=== PATIENT | male | born 1955 | race Caucasian/White ===

== ENCOUNTER → 2019-03-11 14:13 | Outpatient (CLI) | payer MEDICARE, SELFPAY ==
--- NOTE | 2019-03-11 14:20 | XR_ITS ---
PROCEDURE: XR FOOT RT MIN 3V CLINICAL INDICATION: RT ANKLE AND FOOT PAIN WITH SWELLING Right foot and ankle pain COMPARISON: XR ANKLE RT MIN 3V from 03/11/2019 FINDINGS: No fracture or dislocation. No lytic or blastic change. There is normal mineralization. There are mild degenerative changes at the ankle with mild bony hypertrophy along the anterior aspect of the distal tibia. There is some cortical regularity of the calcaneal spur which is nonspecific. Other findings:There is some and ostosis involving the distal tibia laterally and there are mild degenerative changes at the navicular cuneiform joint. IMPRESSION: No acute finding. Mild degenerative changes Dictated by: Marcio Vegas MD 03/11/2019 14:49 Electronically signed by Marcio Vegas MD in [place] 03/11/2019 14:49
== END ==
PROVIDERS: PCP Internal Medicine; Visit Provider Internal Medicine
DX: M25.571 Pain in right ankle and joints of right foot (principal)
CPT/HCPCS: 73610; 73630

== ENCOUNTER → 2020-07-20 09:40 | Outpatient (CLI) | payer MEDICARE, SELFPAY ==
[2020-07-20 10:20] LABS: Hemoglobin A1C 7.4 % (4.0-6.0)
[2020-07-20 10:48] LABS: Chloride 98 mmol/L (98-107); Sodium 134 mmol/L (136-145)
[2020-07-20 10:49] LABS: Potassium 5.5 mmoL/L (3.5-5.1)
[2020-07-20 10:51] LABS: Alanine Aminotransferase 24 U/L (12-78); Albumin Level 4.6 g/dl (3.5-5.0); Alkaline Phosphatase 120 U/L (38-126); Aspartate Amino Transferase 28 U/L (17-59); Bilirubin,Total 0.6 mg/dl (0.2-1.3); Blood Urea Nitrogen 13 mg/dl (9-20); Carbon Dioxide 30 mmol/L (22.0-30.0); Cholesterol 191 mg/dl (140-200); Estimated Glomerular Filt Rate 67 ml/min (>60); GFR (African American) 81 ML/MIN (>60); Total Protein,Serum 7.7 g/dl (6.3-8.2)
[2020-07-20 10:52] LABS: Calcium 9.9 mg/dl (8.4-10.2); Chol/HDL Ratio 4.2 (1-3.5); Glucose 199 mg/dl (74-100); HDL Cholesterol 46 mg/dl (40-60); Triglycerides 466 mg/dl (30-150)
[2020-07-20 11:03] LABS: Direct LDL Cholesterol 89.73 mg/dL (100-129)
== END ==
PROVIDERS: Visit Provider Internal Medicine
DX: E11.59 Type 2 diabetes mellitus with other circulatory complications (principal); E11.42 Type 2 diabetes mellitus with diabetic polyneuropathy; I10 Essential (primary) hypertension; E78.5 Hyperlipidemia, unspecified; Z79.84 Long term (current) use of oral hypoglycemic drugs
CPT/HCPCS: 36415; 80053; 80061; 83036

== ENCOUNTER → 2021-07-23 14:11 | Outpatient (CLI) | payer MEDICARE, SELFPAY ==
[2021-07-23 16:06] LABS: Hemoglobin A1C 6.9 % (4.0-6.0)
[2021-07-23 16:34] LABS: Alanine Aminotransferase 18 U/L (12-78); Albumin Level 4.3 g/dl (3.5-5.0); Albumin/Globulin Ratio 1.7 (1.1-1.8); Alkaline Phosphatase 97 U/L (38-126); Anion Gap 11.7 mEq/L (5-15); Aspartate Amino Transferase 28 U/L (17-59); Bilirubin,Total 0.8 mg/dl (0.2-1.3); Blood Urea Nitrogen 15 mg/dl (9-20); Calcium 8.9 mg/dl (8.4-10.2); Carbon Dioxide 28 mmol/L (22.0-30.0); Chloride 100 mmol/L (98-107); Chol/HDL Ratio 4.3 (1-3.5); Cholesterol 163 mg/dl (140-200); Estimated Glomerular Filt Rate 74 ml/min (>60); GFR (African American) 90 ML/MIN (>60); Globulin 2.5 g/dL (1.3-3.2); Glucose 114 mg/dl (74-100); HDL Cholesterol 38 mg/dl (40-60); Potassium 4.7 mmoL/L (3.5-5.1); Sodium 135 mmol/L (136-145); Total Protein,Serum 6.8 g/dl (6.3-8.2); Triglycerides 289 mg/dl (30-150); VLDL Cholesterol 58 mg/dL (0-40)
[2021-07-23 16:45] LABS: Direct LDL Cholesterol 88.02 mg/dL (100-129)
[2021-07-23 17:23] LABS: Vitamin B12 250 pg/mL (239-931)
== END ==
PROVIDERS: Visit Provider Internal Medicine
DX: E11.59 Type 2 diabetes mellitus with other circulatory complications (principal); E11.42 Type 2 diabetes mellitus with diabetic polyneuropathy; I73.9 Peripheral vascular disease, unspecified; I25.10 Atherosclerotic heart disease of native coronary artery without angina pectoris; I10 Essential (primary) hypertension; Z79.84 Long term (current) use of oral hypoglycemic drugs
CPT/HCPCS: 80053; 80061; 82607; 83036

== ENCOUNTER → 2021-07-29 07:43 | Outpatient (CLI) | payer MEDICARE, SELFPAY ==
--- NOTE | 2021-07-29 07:48 | CT_ITS ---
FINAL REPORT TECHNIQUE: Axial CT images were performed through the head. Coronal reformatted images were submitted. This study was performed with techniques to keep radiation doses as low as reasonably achievable (ALARA). Individualized dose reduction techniques using automated exposure control or adjustment of mA and/or kV according to the patient's size were employed. CLINICAL HISTORY: [place] FINDINGS: There is moderate atrophy. There is proportional ventriculomegaly. There is no evidence of hemorrhage. There is no mass or edema identified. There is no abnormal extra-axial fluid seen. There is complete opacification of the right mastoid air cells. There is complete opacification of the right middle ear cavity. There is partial opacification of the left mastoid air cells. IMPRESSION: Moderate atrophy and proportional ventriculomegaly. Chronic right mastoiditis and otitis media. Mild left mastoiditis. Reviewed, Interpreted and Dictated by Moustapha Treadwell MD Transcribed by Kaley Ruby Authenticated by Moustapha Treadwell MD on 07/29/2021 12:52:01 PM [facility]
== END ==
PROVIDERS: PCP Internal Medicine; Visit Provider Internal Medicine
DX: R27.0 Ataxia, unspecified (principal)
CPT/HCPCS: 70450

== ENCOUNTER → 2022-01-26 12:19 | Outpatient (CLI) | payer MEDICARE, SELFPAY ==
[2022-01-26 13:38] LABS: Basophils # 0.1 K/mm3 (0-0.2); Basophils % 0.6 % (0.1-2.0); Eosinophils # 0.1 K/mm3 (0.0-0.4); Eosinophils % 0.6 % (0.1-12.0); Hematocrit 50.8 % (42.0-52.0); Hemoglobin 16.3 g/dL (14.1-18.0); Lymphocytes # 1.9 K/mm3 (0.7-4.5); Lymphocytes % 20.2 % (10-50); Mean Corpuscular Volume 99.8 fl (80-94); Mean Platelet Volume 10.7 fl (7.4-10.4); Monocytes # 0.6 K/mm3 (0.1-1.0); Neutrophils # 6.7 K/mm3 (1.8-7.8); Neutrophils % 72.6 % (37.0-80.0); Platelet Count 189 K/mm3 (142-424); Red Blood Count 5.09 M/mm3 (4.60-6.20); Red Cell Distribution Width 13.9 % (11.5-17.5); White Blood Count 9.3 K/mm3 (4.8-10.8)
[2022-01-26 13:44] LABS: Creatinine,Urine Random 50 mg/dL (Not Estab.); Microalbumin < 6.000 mg/L (0-16.7)
[2022-01-26 14:24] LABS: Alanine Aminotransferase 18 U/L (12-78); Albumin/Globulin Ratio 1.5 (1.1-1.8); Alkaline Phosphatase 142 U/L (38-126); Anion Gap 13.5 mEq/L (5-15); Aspartate Amino Transferase 22 U/L (17-59); Bilirubin,Total 0.3 mg/dl (0.2-1.3); Blood Urea Nitrogen 14 mg/dl (9-20); Calcium 9.2 mg/dl (8.4-10.2); Carbon Dioxide 27 mmol/L (22.0-30.0); Chloride 100 mmol/L (98-107); Chol/HDL Ratio 4.7 (1-3.5); Cholesterol 164 mg/dl (140-200); Estimated Glomerular Filt Rate 60 ml/min (>60); GFR (African American) 73 ML/MIN (>60); Globulin 2.6 g/dL (1.3-3.2); Glucose 130 mg/dl (74-100); HDL Cholesterol 35 mg/dl (40-60); Potassium 4.5 mmoL/L (3.5-5.1); Sodium 136 mmol/L (136-145); Total Protein,Serum 6.6 g/dl (6.3-8.2)
[2022-01-26 14:25] LABS: Triglycerides 444 mg/dl (30-150)
[2022-01-26 14:54] LABS: Prostate Specific Ag Screen 0.4 ng/ml (0.0-4.0)
[2022-01-26 15:25] LABS: Hemoglobin A1C 7.1 % (4.0-6.0)
[2022-01-28 10:10] LABS: Direct LDL Cholesterol 71 mg/dL (100-129)
== END ==
PROVIDERS: PCP Internal Medicine; Visit Provider Internal Medicine
DX: E11.42 Type 2 diabetes mellitus with diabetic polyneuropathy (principal); E11.59 Type 2 diabetes mellitus with other circulatory complications; I10 Essential (primary) hypertension; E78.5 Hyperlipidemia, unspecified; I73.9 Peripheral vascular disease, unspecified; Z12.5 Encounter for screening for malignant neoplasm of prostate; Z79.84 Long term (current) use of oral hypoglycemic drugs
CPT/HCPCS: 80053; 80061; 82043; 82570; 83036; 85025; G0103

== ENCOUNTER → 2022-08-03 12:20 | Outpatient (CLI) | payer MEDICARE, SELFPAY ==
[2022-08-03 15:09] LABS: Alanine Aminotransferase 20 U/L (12-78); Albumin Level 4.3 g/dl (3.5-5.0); Albumin/Globulin Ratio 1.6 (1.1-1.8); Alkaline Phosphatase 106 U/L (38-126); Anion Gap 13.4 mEq/L (5-15); Aspartate Amino Transferase 25 U/L (17-59); Bilirubin,Total 0.7 mg/dl (0.2-1.3); Blood Urea Nitrogen 14 mg/dl (9-20); Calcium 8.9 mg/dl (8.4-10.2); Carbon Dioxide 27 mmol/L (22.0-30.0); Chloride 98 mmol/L (98-107); Chol/HDL Ratio 3.9 (1-3.5); Cholesterol 150 mg/dl (140-200); Estimated Glomerular Filt Rate 66 ml/min (>60); GFR (African American) 80 ML/MIN (>60); Globulin 2.7 g/dL (1.3-3.2); Glucose 142 mg/dl (74-100); HDL Cholesterol 38 mg/dl (40-60); Potassium 4.4 mmoL/L (3.5-5.1); Sodium 134 mmol/L (136-145); Triglycerides 317 mg/dl (30-150); VLDL Cholesterol 63 mg/dL (0-40)
[2022-08-03 15:20] LABS: Direct LDL Cholesterol 77.83 mg/dL (100-129)
[2022-08-03 21:50] LABS: Hemoglobin A1C 6.8 % (4.0-6.0)
== END ==
PROVIDERS: PCP Internal Medicine; Visit Provider Internal Medicine
DX: E11.42 Type 2 diabetes mellitus with diabetic polyneuropathy (principal); E11.59 Type 2 diabetes mellitus with other circulatory complications; I25.10 Atherosclerotic heart disease of native coronary artery without angina pectoris; I10 Essential (primary) hypertension; I73.9 Peripheral vascular disease, unspecified; E78.5 Hyperlipidemia, unspecified; E53.8 Deficiency of other specified B group vitamins; Z79.84 Long term (current) use of oral hypoglycemic drugs
CPT/HCPCS: 80053; 80061; 83036

== ENCOUNTER → 2023-02-14 12:48 | Outpatient (CLI) | payer MEDICARE, SELFPAY ==
[2023-02-14 13:22] LABS: Basophils # 0.1 K/mm3 (0-0.2); Basophils % 0.6 % (0.1-2.0); Eosinophils # 0.1 K/mm3 (0.0-0.4); Eosinophils % 0.7 % (0.1-12.0); Hematocrit 54.2 % (42.0-52.0); Hemoglobin 17.2 g/dL (14.1-18.0); Lymphocytes # 1.8 K/mm3 (0.7-4.5); Lymphocytes % 19.3 % (10-50); Mean Corpuscular HGB Conc 31.7 g/dL (31.8-35.4); Mean Corpuscular Hemoglobin 31.3 pg (27.0-31.2); Mean Corpuscular Volume 98.9 fl (80-94); Mean Platelet Volume 10.5 fl (7.4-10.4); Monocytes # 0.5 K/mm3 (0.1-1.0); Monocytes % 5.4 % (1.7-9.3); Neutrophils # 6.8 K/mm3 (1.8-7.8); Neutrophils % 73.9 % (37.0-80.0); Platelet Count 168 K/mm3 (142-424); Red Blood Count 5.48 M/mm3 (4.60-6.20); Red Cell Distribution Width 14.3 % (11.5-17.5); White Blood Count 9.2 K/mm3 (4.8-10.8)
[2023-02-14 13:39] LABS: Hemoglobin A1C 6.9 % (4.0-6.0)
[2023-02-14 14:08] LABS: Microalbumin < 6.000 mg/L (0-16.7)
[2023-02-14 14:15] LABS: Alanine Aminotransferase 23 U/L (12-78); Albumin Level 4.4 g/dl (3.5-5.0); Albumin/Globulin Ratio 1.5 (1.1-1.8); Alkaline Phosphatase 120 U/L (38-126); Anion Gap 17.9 mEq/L (5-15); Aspartate Amino Transferase 27 U/L (17-59); Bilirubin,Total 0.6 mg/dl (0.2-1.3); Blood Urea Nitrogen 19 mg/dl (9-20); Calcium 9.2 mg/dl (8.4-10.2); Carbon Dioxide 26 mmol/L (22.0-30.0); Chloride 98 mmol/L (98-107); Chol/HDL Ratio 4.5 (1-3.5); Cholesterol 174 mg/dl (140-200); Estimated Glomerular Filt Rate 60 ml/min (>60); GFR (African American) 73 ML/MIN (>60); Globulin 2.9 g/dL (1.3-3.2); Glucose 124 mg/dl (74-100); HDL Cholesterol 39 mg/dl (40-60); Potassium 4.9 mmoL/L (3.5-5.1); Sodium 137 mmol/L (136-145); Total Protein,Serum 7.3 g/dl (6.3-8.2); Triglycerides 317 mg/dl (30-150); VLDL Cholesterol 63 mg/dL (0-40)
[2023-02-14 14:20] LABS: Creatinine,Urine Random 53 mg/dL (Not Estab.)
[2023-02-14 14:26] LABS: Direct LDL Cholesterol 85.78 mg/dL (100-129)
[2023-02-14 14:45] LABS: Prostate Specific Ag Screen 0.7 ng/ml (0.0-4.0)
== END ==
PROVIDERS: PCP Internal Medicine; Visit Provider Internal Medicine
DX: E11.42 Type 2 diabetes mellitus with diabetic polyneuropathy (principal); I25.10 Atherosclerotic heart disease of native coronary artery without angina pectoris; E78.5 Hyperlipidemia, unspecified; E53.8 Deficiency of other specified B group vitamins; Z12.5 Encounter for screening for malignant neoplasm of prostate
CPT/HCPCS: 80053; 80061; 82043; 82570; 83036; 85025; G0103

== ENCOUNTER 2023-02-28 08:35 | Outpatient (CLI) | payer MEDICARE, SELFPAY ==
[2023-02-28 08:40] VITALS: BMI 33.0
[2023-02-28 08:54] LABS: Hematocrit 51.8 % (42.0-52.0); Hemoglobin 16.3 g/dL (14.1-18.0)
[2023-02-28 09:40] VITALS: BP 131/76; PULSE 60; RESP 18; O2SAT 98
--- NOTE | 2023-02-28 09:59 | PC.NURSE ---
0905- pt Hct on todays labs was 51.8. MD order is for phlebotomy when Hct greater than 50. Joy Smallwood from lab came to perform phlebotomy. 20g IV was started in left AC by this RN. 225ml whole blood was removed. IV stopped draining and was not able to be fixed. pt did not want to have another IV started for remainder of 25ml needed per MD order. IV was removed and pt was scheduled to recheck labs on 03/07/23. Pt tolerated well. BP post precedure was 131/75, HR 60.
== END 2023-02-28 09:45 | disposition home or self-care (01) ==
LOC: INF 08:36
PROVIDERS: PCP Internal Medicine; Visit Provider Internal Medicine
DX: R71.8 Other abnormality of red blood cells (principal)
CPT/HCPCS: 36415; 85014; 85018; 99195

== ENCOUNTER 2023-03-07 08:39 | Outpatient (CLI) | payer MEDICARE, SELFPAY ==
[2023-03-07 08:45] VITALS: BMI 33.0
[2023-03-07 09:14] LABS: Hematocrit 49.6 % (42.0-52.0); Hemoglobin 15.8 g/dL (14.1-18.0)
--- NOTE | 2023-03-07 11:58 | PC.NURSE ---
0900 H&H obtained via R forearm with butterfly needle. Patient here for possible therapeutic phlebotomy based on today's H&H results.
--- NOTE | 2023-03-07 11:59 | PC.NURSE ---
0935 Patient does not need therapeutic phlebotomy today based upon Hct 49.6. today's Hgb 15.8, Hct 49.6. Patient denies complaints. Next appointment scheduled. Discharged home stable with no problems noted.
== END 2023-03-07 09:35 | disposition home or self-care (01) ==
LOC: INF 08:40
PROVIDERS: PCP Internal Medicine; Visit Provider Internal Medicine
DX: R71.8 Other abnormality of red blood cells (principal)
CPT/HCPCS: 36415; 85014; 85018

== ENCOUNTER 2023-03-14 08:51 | Outpatient (CLI) | payer MEDICARE, SELFPAY ==
[2023-03-14 08:55] VITALS: BMI 33.0
--- NOTE | 2023-03-14 09:05 | PC.NURSE ---
Pt presents for labs to be checked, possible phlebotomy. Venipuncture performed per Rosa M Jain RN using a butterfly needle to pt's rt hand and blood obtained for specimen. Site secured once needle was withdrawn using 2x2 gauze and coban. Specimen sent to lab for analysis. Will await results to determine if pt needs phlebotomy today.
[2023-03-14 09:16] LABS: Hematocrit 53.8 % (42.0-52.0); Hemoglobin 16.9 g/dL (14.1-18.0)
[2023-03-14 09:20] VITALS: BP 123/71; PULSE 61; RESP 16; TEMP 36.4; O2SAT 98
--- NOTE | 2023-03-14 09:32 | PC.NURSE ---
0802 Hgb & Hct collected for possible therapeutic phlebotomy via 1 stick with butterfly needle to R hand.
[2023-03-14 09:39] VITALS: BP 119/66; PULSE 60; RESP 16; TEMP 36.4; O2SAT 98
== END 2023-03-14 09:45 | disposition home or self-care (01) ==
LOC: INF 08:53
PROVIDERS: PCP Internal Medicine; Visit Provider Internal Medicine
DX: R71.8 Other abnormality of red blood cells (principal)
CPT/HCPCS: 36415; 85014; 85018; 99195

== ENCOUNTER → 2023-03-16 09:49 | Outpatient (POV) | payer MEDICARE, SELFPAY | PROVIDERS: Visit Provider Specialist/Technologist | DX: Z00.00 Encounter for general adult medical examination without abnormal findings (principal) ==

== ENCOUNTER 2023-03-21 08:28 | Outpatient (CLI) | payer MEDICARE, SELFPAY ==
[2023-03-21 08:31] VITALS: BMI 33.0
[2023-03-21 08:46] LABS: Hematocrit 47.4 % (42.0-52.0); Hemoglobin 15.8 g/dL (14.1-18.0)
--- NOTE | 2023-03-21 08:54 | PC.NURSE ---
0837- H&H drawn via butterfly needle in right ac. needle removed and coban applied. 0854- Hct 47.4. Pt does not meet criteria for phlebotomy at this time. pt scheduled for f/u labs in one week.
== END 2023-03-21 08:56 | disposition home or self-care (01) ==
LOC: INF 08:29
PROVIDERS: PCP Internal Medicine; Visit Provider Internal Medicine
DX: R71.8 Other abnormality of red blood cells (principal)
CPT/HCPCS: 36415; 85014; 85018

== ENCOUNTER 2023-03-28 08:21 | Outpatient (CLI) | payer MEDICARE, SELFPAY ==
[2023-03-28 08:23] VITALS: BMI 33.0
--- NOTE | 2023-03-28 08:33 | PC.NURSE ---
Pt presents today for labs to be drawn and possible phlebotomy. Venipuncture performed to pts lt ac using a butterfly needle-blood obtained as needed for labs and specimen sent to lab for analysis. Venipuncture site secured with 2x2 gauze and coban once needle was withdrawn. Will await lab results to determine if phlebotomy is needed.
[2023-03-28 08:44] LABS: Hematocrit 46.5 % (42.0-52.0); Hemoglobin 15.7 g/dL (14.1-18.0)
== END 2023-03-28 08:50 | disposition home or self-care (01) ==
LOC: INF 08:22
PROVIDERS: PCP Internal Medicine; Visit Provider Internal Medicine
DX: R71.8 Other abnormality of red blood cells (principal)
CPT/HCPCS: 36415; 85014; 85018

== ENCOUNTER 2023-04-04 08:22 | Outpatient (CLI) | payer MEDICARE, SELFPAY ==
[2023-04-04 08:28] VITALS: BMI 32.5
--- NOTE | 2023-04-04 08:31 | PC.NURSE ---
0831-collected labs via venipuncture stick with butterfly needle in left ac;will wait on labs;if hct<50 pt doesn't need therapeutic phlebotomy
[2023-04-04 08:42] LABS: Hemoglobin 16.2 g/dL (14.1-18.0)
--- NOTE | 2023-04-04 08:50 | PC.NURSE ---
0850-pt ok to d/c home hct 49; pt wants to return in 2 weeks.
== END 2023-04-04 08:50 | disposition home or self-care (01) ==
LOC: INF 08:23
PROVIDERS: PCP Internal Medicine; Visit Provider Internal Medicine
DX: R71.8 Other abnormality of red blood cells (principal)
CPT/HCPCS: 36415; 85014; 85018

== ENCOUNTER 2023-04-18 08:08 | Outpatient (CLI) | payer MEDICARE, SELFPAY ==
[2023-04-18 08:13] VITALS: BMI 33.0
[2023-04-18 08:24] LABS: Hematocrit 49.1 % (42.0-52.0); Hemoglobin 16.6 g/dL (14.1-18.0)
--- NOTE | 2023-04-18 08:52 | PC.NURSE ---
0818- H&H drawn per MD order via butterfly needle in right ac. needle removed and coban applied. Hct today was 49.1 and does not meet criteria for phlebotomy at this time. pt scheduled for recheck in two weeks per MD Mina.
== END 2023-04-18 08:30 | disposition home or self-care (01) ==
LOC: INF 08:09
PROVIDERS: PCP Internal Medicine; Visit Provider Internal Medicine
DX: R71.8 Other abnormality of red blood cells (principal)
CPT/HCPCS: 36415; 85014; 85018

== ENCOUNTER 2023-05-02 08:13 | Outpatient (CLI) | payer MEDICARE, SELFPAY ==
[2023-05-02 08:21] VITALS: BMI 33.0
--- NOTE | 2023-05-02 08:32 | PC.NURSE ---
05/02/23 0884 Pt presents for labs to see if phlebotomy is needed. Venipuncture performed using butterfly access needle to pt's lt ac x 1 stick. Blood drawn for labs needed and specimen sent to lab for analysis. Site secured once needle was withdrawn using 2x2 gauze and coban. Will await lab results to determine poc.
[2023-05-02 08:35] LABS: Hematocrit 50.5 % (42.0-52.0); Hemoglobin 16.5 g/dL (14.1-18.0)
[2023-05-02 09:01] VITALS: BP 161/80; PULSE 67; RESP 18; TEMP 36.6; O2SAT 97
[2023-05-02 09:15] VITALS: BP 122/68; PULSE 66; RESP 18; O2SAT 97
--- NOTE | 2023-05-02 12:37 | PC.NURSE ---
05/02/23 0915 phlebotomy complete, 250cc removed. iv removed-catheter intact. site secured with 2x2 gauze and coban.
== END 2023-05-02 09:15 | disposition home or self-care (01) ==
LOC: INF 08:15
PROVIDERS: PCP Internal Medicine; Visit Provider Internal Medicine
DX: R71.8 Other abnormality of red blood cells (principal)
CPT/HCPCS: 36415; 85014; 85018; 99195

== ENCOUNTER 2023-05-30 08:12 | Outpatient (CLI) | payer MEDICARE, SELFPAY ==
[2023-05-30 08:18] VITALS: BMI 33.0
[2023-05-30 08:32] LABS: Hematocrit 47.4 % (42.0-52.0); Hemoglobin 15.8 g/dL (14.1-18.0)
--- NOTE | 2023-05-30 08:36 | PC.NURSE ---
0825 H&H lab draw per 1 stick L AC with butterfly needle. Patient here for possible therapeutic phlebotomy based on pending results of H&H.
--- NOTE | 2023-05-30 09:00 | PC.NURSE ---
H&H 15.8/ 47.4. Patient does not need therapeutic phlebotomy today based on lab results/standing order.
== END 2023-05-30 09:02 | disposition home or self-care (01) ==
LOC: INF 08:13
PROVIDERS: PCP Internal Medicine; Visit Provider Internal Medicine
DX: R71.8 Other abnormality of red blood cells (principal)
CPT/HCPCS: 36415; 85014; 85018

== ENCOUNTER 2023-06-12 08:11 | Outpatient (CLI) | payer MEDICARE, SELFPAY ==
[2023-06-12 08:16] VITALS: BMI 32.5
[2023-06-12 08:31] LABS: Hematocrit 49.6 % (42.0-52.0); Hemoglobin 16.6 g/dL (14.1-18.0)
--- NOTE | 2023-06-12 09:51 | PC.NURSE ---
0823- H&H drawn per MD order via butterfly needle in right AC. needle removed and coban applied. pt tolerated well. 0853- Hct 49.6 and pt does not meet criteria for phlebotomy. MD office contacted and verbal or given per Therese Scott LPN at Dr Enriquez office to recheck labs in 3 months, 09/12/23.
== END 2023-06-12 08:45 | disposition home or self-care (01) ==
LOC: INF 08:12
PROVIDERS: PCP Internal Medicine; Visit Provider Internal Medicine
DX: R71.8 Other abnormality of red blood cells (principal)
CPT/HCPCS: 36415; 85014; 85018

== ENCOUNTER 2023-08-16 13:15 | Outpatient (CLI) | payer MEDICARE, SELFPAY ==
[2023-08-16 15:18] LABS: Alanine Aminotransferase 15 U/L (12-78); Albumin Level 4.3 g/dl (3.5-5.0); Albumin/Globulin Ratio 1.7 (1.1-1.8); Alkaline Phosphatase 109 U/L (38-126); Anion Gap 12.8 mEq/L (5-15); Aspartate Amino Transferase 28 U/L (17-59); Bilirubin,Total 0.6 mg/dl (0.2-1.3); Blood Urea Nitrogen 12 mg/dl (9-20); Carbon Dioxide 30 mmol/L (22.0-30.0); Chloride 100 mmol/L (98-107); Chol/HDL Ratio 4.5 (1-3.5); Cholesterol 170 mg/dl (140-200); Estimated Glomerular Filt Rate 66 ml/min (>60); GFR (African American) 80 ML/MIN (>60); Globulin 2.5 g/dL (1.3-3.2); Glucose 111 mg/dl (74-100); HDL Cholesterol 38 mg/dl (40-60); Potassium 4.8 mmoL/L (3.5-5.1); Sodium 138 mmol/L (136-145); Total Protein,Serum 6.8 g/dl (6.3-8.2); Triglycerides 248 mg/dl (30-150); VLDL Cholesterol 50 mg/dL (0-40)
[2023-08-16 15:22] LABS: Hemoglobin A1C 6.9 % (4.0-6.0)
[2023-08-16 15:29] LABS: Direct LDL Cholesterol 85.07 mg/dL (100-129)
== END 2023-08-16 23:59 ==
LOC: LAB.DROPOF 13:16
PROVIDERS: PCP Internal Medicine; Visit Provider Internal Medicine
DX: E11.59 Type 2 diabetes mellitus with other circulatory complications (principal); E11.42 Type 2 diabetes mellitus with diabetic polyneuropathy; I10 Essential (primary) hypertension; I73.9 Peripheral vascular disease, unspecified; E78.5 Hyperlipidemia, unspecified; E53.8 Deficiency of other specified B group vitamins; Z79.84 Long term (current) use of oral hypoglycemic drugs
CPT/HCPCS: 80053; 80061; 83036

== ENCOUNTER 2023-09-12 08:08 | Outpatient (CLI) | payer MEDICARE, SELFPAY ==
[2023-09-12 08:13] VITALS: BMI 32.5
[2023-09-12 08:30] LABS: Hematocrit 52.6 % (42.0-52.0); Hemoglobin 16.7 g/dL (14.1-18.0)
--- NOTE | 2023-09-12 09:26 | PC.NURSE ---
0909- Hct this AM, 52.6. phlebotomy 250ml performed by Mary Canseco from lab per MD order. 20g IV started in left ac. post procedure BP, 128/71, HR 59. Pt tolerated well. scheduled for recheck in 3 months.
== END 2023-09-12 09:29 | disposition home or self-care (01) ==
PROVIDERS: PCP Internal Medicine; Visit Provider Internal Medicine
DX: R71.8 Other abnormality of red blood cells (principal)
CPT/HCPCS: 36415; 85014; 85018; 99195

== ENCOUNTER 2023-11-15 13:45 | Outpatient (CLI) | payer MEDICARE, SELFPAY ==
[2023-11-15 13:44] LABS: Hemoglobin A1C 6.6 % (4.0-6.0)
== END 2023-11-15 23:59 | disposition home or self-care (01) ==
LOC: LAB.DROPOF 13:45
PROVIDERS: PCP Internal Medicine; Visit Provider Internal Medicine
DX: E11.59 Type 2 diabetes mellitus with other circulatory complications (principal); Z79.84 Long term (current) use of oral hypoglycemic drugs
CPT/HCPCS: 83036

== ENCOUNTER 2023-12-05 07:54 | Outpatient (CLI) | payer MEDICARE, SELFPAY ==
[2023-12-05 08:11] VITALS: BMI 33.0
[2023-12-05 08:34] LABS: Hematocrit 47.7 % (42.0-52.0); Hemoglobin 15.5 g/dL (14.1-18.0)
--- NOTE | 2023-12-05 08:47 | PC.NURSE ---
0812 H&H collected via venipuncture to R AC x 1 stick with butterfly needle per NANI Santos. Patient tolerated well. 0835 H&H results 15.5/47.7. Patient does not need therapeutic phlebotomy today based on MD order to phlebotomize if Hct >50. Next 3 month appointment scheduled. Patient discharged home/stable.
== END 2023-12-05 08:52 | disposition home or self-care (01) ==
LOC: INF 07:55
PROVIDERS: PCP Internal Medicine; Visit Provider Internal Medicine
DX: I25.10 Atherosclerotic heart disease of native coronary artery without angina pectoris (principal)
CPT/HCPCS: 36415; 85014; 85018

== ENCOUNTER 2024-02-15 09:00 | Outpatient (CLI) | payer MEDICARE, SELFPAY ==
[2024-02-15 17:42] LABS: Hemoglobin A1C 6.6 % (4.0-6.0)
[2024-02-15 17:43] LABS: Creatinine,Urine Random 47 mg/dL (Not Estab.)
[2024-02-15 17:58] LABS: Microalbumin < 6.000 mg/L (0-16.7)
[2024-02-15 19:04] LABS: Alanine Aminotransferase 16 U/L (12-78); Albumin Level 3.9 g/dl (3.5-5.0); Albumin/Globulin Ratio 1.3 (1.1-1.8); Alkaline Phosphatase 88 U/L (38-126); Anion Gap 9.5 mEq/L (5-15); Aspartate Amino Transferase 24 U/L (17-59); Bilirubin,Total 0.6 mg/dl (0.2-1.3); Blood Urea Nitrogen 15 mg/dl (9-20); Carbon Dioxide 30 mmol/L (22.0-30.0); Chloride 100 mmol/L (98-107); Chol/HDL Ratio 3.9 (1-3.5); Cholesterol 155 mg/dl (140-200); Estimated Glomerular Filt Rate 74 ml/min (>60); GFR (African American) 89 ML/MIN (>60); Globulin 2.9 g/dL (1.3-3.2); Glucose 126 mg/dl (74-100); HDL Cholesterol 40 mg/dl (40-60); Potassium 4.5 mmoL/L (3.5-5.1); Sodium 135 mmol/L (136-145); Total Protein,Serum 6.8 g/dl (6.3-8.2); Triglycerides 286 mg/dl (30-150); VLDL Cholesterol 57 mg/dL (0-40)
[2024-02-15 19:15] LABS: Direct LDL Cholesterol 78.42 mg/dL (100-129)
[2024-02-15 19:36] LABS: Prostate Specific Ag Screen 0.6 ng/ml (0.0-4.0)
== END 2024-02-15 23:59 | disposition home or self-care (01) ==
LOC: LAB.DROPOF 02-16 12:46
PROVIDERS: PCP Internal Medicine; Visit Provider Internal Medicine
DX: E11.59 Type 2 diabetes mellitus with other circulatory complications (principal); E11.42 Type 2 diabetes mellitus with diabetic polyneuropathy; I10 Essential (primary) hypertension; E78.5 Hyperlipidemia, unspecified; Z12.5 Encounter for screening for malignant neoplasm of prostate; E11.49 Type 2 diabetes mellitus with other diabetic neurological complication; E53.8 Deficiency of other specified B group vitamins
CPT/HCPCS: 80053; 80061; 82043; 82570; 83036; G0103

== ENCOUNTER 2024-08-15 09:50 | Outpatient (CLI) | payer MEDICARE, SELFPAY ==
[2024-08-15 18:57] LABS: Basophils % 0.5 % (0.1-2.0); Eosinophils # 0.1 K/mm3 (0.0-0.4); Eosinophils % 1.1 % (0.1-12.0); Hematocrit 52.5 % (42.0-52.0); Hemoglobin 16.9 g/dL (14.1-18.0); Lymphocytes # 1.6 K/mm3 (0.7-4.5); Lymphocytes % 19.6 % (10-50); Mean Corpuscular HGB Conc 32.2 g/dL (31.8-35.4); Mean Corpuscular Hemoglobin 31.6 pg (27.0-31.2); Mean Corpuscular Volume 98.1 fl (80-94); Mean Platelet Volume 12.2 fl (7.4-10.4); Monocytes # 0.5 K/mm3 (0.1-1.0); Monocytes % 6.5 % (1.7-9.3); Neutrophils # 5.7 K/mm3 (1.8-7.8); Neutrophils % 71.8 % (37.0-80.0); Platelet Count 160 K/mm3 (142-424); Red Blood Count 5.35 M/mm3 (4.60-6.20); Red Cell Distribution Width 13.7 % (11.5-17.5)
[2024-08-15 19:15] LABS: Creatinine,Urine Random 52 mg/dL (Not Estab.)
[2024-08-15 19:29] LABS: Albumin Level 4.5 g/dl (3.5-5.0); Chloride 98 mmol/L (98-107); Potassium 4.4 mmoL/L (3.5-5.1); Sodium 137 mmol/L (136-145)
[2024-08-15 19:31] LABS: Blood Urea Nitrogen 11 mg/dl (9-20); Estimated Glomerular Filt Rate 74 ml/min (>60); GFR (African American) 89 ML/MIN (>60)
[2024-08-15 19:32] LABS: Alanine Aminotransferase 17 U/L (12-78); Alkaline Phosphatase 99 U/L (38-126); Anion Gap 15.4 mEq/L (5-15); Aspartate Amino Transferase 24 U/L (17-59); Bilirubin,Total 0.6 mg/dl (0.2-1.3); Calcium 9.3 mg/dl (8.4-10.2); Carbon Dioxide 28 mmol/L (22.0-30.0); Cholesterol 148 mg/dl (140-200); Globulin 2.3 g/dL (1.3-3.2); Glucose 125 mg/dl (74-100); Total Protein,Serum 6.8 g/dl (6.3-8.2); Triglycerides 242 mg/dl (30-150); VLDL Cholesterol 48 mg/dL (0-40)
[2024-08-15 19:33] LABS: Chol/HDL Ratio 3.7 (1-3.5); HDL Cholesterol 40 mg/dl (40-60)
[2024-08-15 19:38] LABS: Microalbumin < 6.000 mg/L (0-16.7)
[2024-08-15 21:24] LABS: Direct LDL Cholesterol 72.38 mg/dL (100-129)
[2024-08-15 22:00] LABS: Hemoglobin A1C 6.4 % (4.0-6.0)
== END 2024-08-15 23:59 | disposition home or self-care (01) ==
LOC: LAB.DROPOF 08-16 10:18
PROVIDERS: PCP Internal Medicine; Visit Provider Internal Medicine
DX: E78.49 Other hyperlipidemia (principal); I10 Essential (primary) hypertension; E11.59 Type 2 diabetes mellitus with other circulatory complications; E11.42 Type 2 diabetes mellitus with diabetic polyneuropathy
CPT/HCPCS: 80053; 80061; 82043; 82570; 83036; 85025

== ENCOUNTER 2025-02-19 11:10 | Outpatient (CLI) | payer MEDICARE, SELFPAY ==
[2025-02-19 14:25] LABS: Hematocrit 49.4 % (42.0-52.0); Hemoglobin 16.5 g/dL (14.1-18.0); Immature Granulocytes % 0.4 %; Mean Corpuscular HGB Conc 33.4 g/dL (31.8-35.4); Mean Corpuscular Hemoglobin 31.8 pg (27.0-31.2); Mean Corpuscular Volume 95.2 fl (80-94); Nucleated Red Blood Cells % 0 %; Platelet Count 159 K/mm3 (142-424); Red Blood Count 5.19 M/mm3 (4.60-6.20); Red Cell Distribution Width-SD 47.4 fL; White Blood Count 8.2 K/mm3 (4.8-10.8)
[2025-02-19 14:55] LABS: Alanine Aminotransferase 16 U/L (12-78); Albumin Level 4.4 g/dl (3.5-5.0); Albumin/Globulin Ratio 1.7 (1.1-1.8); Alkaline Phosphatase 94 U/L (38-126); Anion Gap 14.4 mEq/L (5-15); Aspartate Amino Transferase 23 U/L (17-59); Bilirubin,Total 0.9 mg/dl (0.2-1.3); Blood Urea Nitrogen 13 mg/dl (9-20); Calcium 9.5 mg/dl (8.4-10.2); Carbon Dioxide 28 mmol/L (22.0-30.0); Chloride 98 mmol/L (98-107); Cholesterol 137 mg/dl (140-200); Creatinine,Serum 1.00 mg/dl (0.66-1.25); Estimated Glomerular Filt Rate 74 ml/min (>60); GFR (African American) 89 ML/MIN (>60); Globulin 2.6 g/dL (1.3-3.2); Glucose 111 mg/dl (74-100); HDL Cholesterol 39 mg/dl (40-60); Potassium 5.4 mmoL/L (3.5-5.1); Sodium 135 mmol/L (136-145); Total Protein,Serum 7.0 g/dl (6.3-8.2); Triglycerides 248 mg/dl (30-150)
[2025-02-19 15:00] LABS: Hemoglobin A1C 6.4 % (4.0-6.0)
== END 2025-02-19 23:59 ==
LOC: LAB.DROPOF 02-20 10:14
PROVIDERS: PCP Internal Medicine; Visit Provider Internal Medicine
DX: E78.5 Hyperlipidemia, unspecified (principal); I10 Essential (primary) hypertension; I25.10 Atherosclerotic heart disease of native coronary artery without angina pectoris; E11.59 Type 2 diabetes mellitus with other circulatory complications; E11.42 Type 2 diabetes mellitus with diabetic polyneuropathy; Z12.5 Encounter for screening for malignant neoplasm of prostate
CPT/HCPCS: 80053; 80061; 83036; 85025; G0103